=== PATIENT | male | born 1955 | race Caucasian/White ===

== ENCOUNTER 2017-02-19 07:33 | Day surgery (SDC) | payer BC ==
[~2017-02-19] VITALS: Ht 172.7 cm; Wt 97.0 kg
[~2017-02-19 07:33] MED LIST: ASPIRIN81 M2 PO; HUMALOG JU100 UNIT/1 SQ; HYDROCHLOROTHIA25 MG PO; LISINOPRIL40 MG PO; MAGNESIUM100 MG PO; MULTIVITAMIN1 EAC2 PO; PRAVASTATIN SOD80 MG PO; TRESIBA FL100 UNIT/1 SC; VITAMIN D31000 UNI2 PO
[2017-02-19 08:39] LABS: POINT-OF-CARE METER ID UU13113696
== END 2017-02-19 13:41 | disposition short-term general hospital (02) ==
LOC: CATH 07:33
PROVIDERS: Internal Medicine Cardiovascular Disease
DX: I25.119 Atherosclerotic heart disease of native coronary artery with unspecified angina pectoris (principal); I25.84 Coronary atherosclerosis due to calcified coronary lesion; I10 Essential (primary) hypertension; E11.9 Type 2 diabetes mellitus without complications; E78.2 Mixed hyperlipidemia; E66.9 Obesity, unspecified; Z68.32 Body mass index [BMI] 32.0-32.9, adult; Z79.4 Long term (current) use of insulin; Z82.49 Family history of ischemic heart disease and other diseases of the circulatory system; Z88.0 Allergy status to penicillin
CPT/HCPCS: 82948; 85347; C1725; C1769; C1887; J0461; J0583; J1644; J2250; J2405; J3010; J7050

== ENCOUNTER 2017-11-23 15:42 | Emergency (ER) | payer BC ==
[~2017-11-23] VITALS: Ht 172.7 cm; Wt 98.5 kg
[2017-11-23 16:10] LABS: MCH 28.4 PG (29.0-34.0); MCHC 34.1 G/DL (30.0-36.0); MCV 83.2 FL (86-99); PLATELET COUNT 232 K/uL (156-360); RBC DIS.WIDTH-CV 13.6 % (11.8-14.6); RBC DIS.WIDTH-SD 41.3 % (39-53); RED BLOOD COUNT 4.93 M/uL (4.00-5.50); WHITE BLOOD COUNT 8.6 K/uL (4.1-10.2)
[2017-11-23 16:18] LABS: CHLORIDE 104 mEq/L (99-109); POTASSIUM 4.2 mEq/L (3.7-5.4); SODIUM 139 mEq/L (136-147)
[2017-11-23 16:20] LABS: GLUCOSE 299 mg/dL (70-99)
[2017-11-23 16:24] LABS: CREATININE 1.1 mg/dL (0.6-1.3); GFR ESTIMATE (CALCULATED) > 59 mL/min/ (58.99-99999)
[2017-11-23 16:25] LABS: UREA NITROGEN (BUN) 17 mg/dL (9-23)
[2017-11-23 16:31] LABS: TROP-I INTERPRETATION NEGATIVE; TROPONIN-I 0.05 ng/mL (0.0-0.30)
[2017-11-23 19:51] LABS: TROP-I INTERPRETATION NEGATIVE; TROPONIN-I 0.06 ng/mL (0.0-0.30)
[2017-11-23 21:00] VITALS: BP 126/76
== END 2017-11-23 21:01 | disposition home or self-care (01) ==
LOC: EME 15:42
PROVIDERS: Physician Assistant
DX: R07.9 Chest pain, unspecified (principal); E11.9 Type 2 diabetes mellitus without complications; E78.5 Hyperlipidemia, unspecified; I10 Essential (primary) hypertension; Z79.4 Long term (current) use of insulin; G47.30 Sleep apnea, unspecified; Z88.0 Allergy status to penicillin
CPT/HCPCS: 71046; 80048; 84484; 85027; 93005; 99281; 99284